=== PATIENT | female | born 1965 | race Hispanic/Latino ===

== ENCOUNTER 2017-10-03 07:32 | Emergency (ER) | payer OTHER, BC ==
[~2017-10-03] VITALS: Ht 154.9 cm; Wt 63.0 kg
[~2017-10-03 07:32] MED LIST: ASPIRIN ADULT L81 MG PO; CHOND PO; CIPROFLOXACIN250 MG OR; ELMIRON100 MG OR; ESTRACE VAG0.1 MG/GM VA; FISH OIL1000 MG PO; GLUCOS PO; KEFLEX500 MG PO; LIPITOR40 MG PO; LISINOPRIL2.5 MG PO; METFORMIN500 M1 PO; MULTI VIT PO; OMNICEF300 MG PO; VITAMIN D1000 UNIT OR
[2017-10-03 08:24] LABS: IMMATURE GRANULOCYTES 0.3 % (0.0-1.0); MEAN CELL VOLUME 85.3 fL CALC (80.0-100.0); MEAN CORPUSCULAR HGB 27.8 pG CALC (26.0-32.0); MEAN CORPUSCULAR HGB CONC 32.6 g/L CALC (32.0-36.0); NEUT# 3.98 thou/uL (2.00-7.15); RED BLOOD COUNT 5.86 mill/uL (4.20-5.60); RED CELL DISTRI WIDTH 13.9 % (11.5-15.5)
[2017-10-03 08:31] LABS: INTERNATIONAL NORMALIZED RATIO 0.9 RATIO (0.7-1.3)
[2017-10-03 08:33] LABS: HEMOGLOBIN 16.3 g/dl (12.0-16.0)
[2017-10-03 08:37] LABS: ALBUMIN 5.6 g/dL (3.2-5.0); ALKALINE PHOSPHATASE 170 u/l (38-126); ANION GAP 26 (6-22 (CALC)); BILIRUBIN, TOTAL 0.6 mg/dL (0.0-1.4); BUN 17 mg/dL (7-17); BUN/CREATININE RATIO 20 (12-20 (CALC)); CARBON DIOXIDE 21 mmol/l (22-30); CHLORIDE 101 mmol/l (95-108); CPK 179 u/l (30-165); CREATININE 0.8 mg/dL (0.5-1.0); GFR > 60 ML/MIN (>=60 (CALC)); GFR FOR AFR.AMER. > 60 ML/MIN (>=60 (CALC)); LIPASE 372 u/l (23-300); POTASSIUM 4.1 mmol/l (3.5-5.1); SGOT/AST 42 u/l (14-36); SGPT/ALT 45 u/l (9-52); SODIUM 143 mmol/l (137-146); TOTAL PROTEIN 10.4 g/dL (6.3-8.2)
[2017-10-03 09:58] VITALS: BP 170/89
[2017-10-03] MEDS ORDERED: CYCLOBENZAPR5 MG PO (09:58)
[2017-10-03] MEDS ORDERED: MOTRIN400 MG PO (09:58)
[2017-10-03 10:16] LABS: URINE BILIRUBIN - DIPSTICK NEGATIVE (NEGATIVE); URINE BLOOD DIPSTICK NEGATIVE (NEGATIVE); URINE COLOR YELLOW; URINE GLUCOSE - DIPSTICK >=1000 mg/dL (NEGATIVE); URINE KETONE NEGATIVE (NEGATIVE); URINE LEUK ESTERASE NEGATIVE (NEGATIVE); URINE NITRITE - DIPSTICK NEGATIVE (Negative); URINE PH 5.5 (4.5-8.0); URINE PROTEIN - DIPSTICK NEGATIVE (NEG-TRACE); URINE SPECIFIC GRAVITY <=1.005; URINE UROBILINOGEN - DIPSTICK 0.2 E.U./dL (0.2)
[2017-10-03 10:45] LABS: URINE CLARITY CLEAR
== END 2017-10-03 10:08 | disposition home or self-care (01) | DRG 392 ==
LOC: ED 07:32
PROVIDERS: Family Medicine
DX: R10.9 Unspecified abdominal pain (principal); M54.2 Cervicalgia; C81.90 Hodgkin lymphoma, unspecified, unspecified site; E11.9 Type 2 diabetes mellitus without complications; V49.40XA Driver injured in collision with unspecified motor vehicles in traffic accident, initial encounter
CPT/HCPCS: Q9967

== ENCOUNTER → 2018-09-08 | Outpatient (REF) | payer BC ==
[~2018-09-08] MED LIST changes: +CYCLOBENZAPR5 MG PO; +MOTRIN400 MG PO
== END | disposition home or self-care (01) | DRG 392 ==
LOC: ULTRASND 13:28
PROVIDERS: ATTEND Internal Medicine
DX: R10.13 Epigastric pain (principal)